=== PATIENT | male | born 1955 | race Caucasian/White ===

== ENCOUNTER 2019-08-09 12:04 | Emergency (ER) | payer OTHER ==
[~2019-08-09] VITALS: Ht 160 cm; Wt 81.2 kg
[2019-08-09] MEDS ORDERED: B-121000 MCG PO (12:17)
[2019-08-09] MEDS ORDERED: ROSUVASTATIN CA10 MG PO (12:17)
[2019-08-09] MEDS ORDERED: DILTIAZEM 24HR240 MG PO (12:17)
== END 2019-08-09 15:14 | disposition home or self-care (01) ==
LOC: ER 12:04
DX: S05.01XA Injury of conjunctiva and corneal abrasion without foreign body, right eye, initial encounter (principal); W45.8XXA Other foreign body or object entering through skin, initial encounter; Y93.89 Activity, other specified; Y92.89 Other specified places as the place of occurrence of the external cause; Y99.8 Other external cause status